=== PATIENT | female | born 1970 | race Caucasian/White ===

== ENCOUNTER → 2016-09-28 | Day surgery (SDC) | payer OTHER ==
[~2016-09-28] MED LIST: BUPIVACAINE HCL PF 0.25% 30 ML VIAL ONE; DARV PO; IRON18TA PO; KETOROLAC TROMETHAMINE 30 MG/ML (IVP) VIAL IV PUSH ONE; LACTATED RINGER'S 1000 ML INJ 1,000 ML ONE; MEPERIDINE HCL 25 MG/ML VIAL ONE; MIDAZOLAM HCL 2 MG/2 ML VIAL ONE; ONDANSETRON HCL 4 MG/2 ML VIAL IV PUSH ONE; PREN0.01 PO; PROPOFOL 200 MG/20 ML AMP IV ONE; ceFAZolin 2 GM PREMIX 50 ML ONE
--- NOTE | 2016-09-28 20:53 | MP ---
cc: FIDENCIO MOBLEY MD DATE OF SURGERY 09/28/16 PREOPERATIVE DIAGNOSIS Symptomatic left ovarian cyst, dysmenorrhea and menorrhagia. PROCEDURE 1. Operative laparoscopy with left salpingectomy and removal of paratubal cyst 2. Right partial salpingectomy 3. Hysteroscopy with dilatation and curettage. 4. Attempt use of the NovaSure was unsuccessful due to device failure. ANESTHESIA General ESTIMATED BLOOD LOSS None. DRAINS Red Huertas catheter x 50 mL of clear urine. INDICATIONS FOR PROCEDURE Patient with history of dysmenorrhea and menorrhagia. Ultrasound revealed a 5 cm persistent left ovarian adnexal cyst. The patient has had a history of smoking, was on oral contraceptives removed due to thromboembolic risk. The patient after consultation for the necessity of the operative laparoscopy consented for operative laparoscopy, removal of left adnexal mass, bilateral tubal ligation, hysteroscopy with dilatation curettage and possible endometrial ablation. OPERATIVE FINDINGS The patient had a solitary 5 cm left paratubal cyst. The ovary itself was normal. The contralateral right ovary was normal. Uterus is normal size and shape. The uterine cavity was symmetrical, measured 9 cm in length, 3.4 cm in width. There was no focal abnormality. There was no perforation. There is no deformity. Endometrial curettings were sent along with the segment of the right fallopian tube and then the left fallopian tube and paratubal cyst as pathology specimens. PROCEDURE IN DETAIL The patient was taken to the operating room, under general anesthesia had an LMA placed. She was carefully positioned in dorsolithotomy position using Bhanu stirrups with sequentials placed on lower extremities. She was prepped and draped. Red Huertas catheter was used to drain the bladder of about 50 mL of clear urine. Exam of the cervix was midline, normal size and shape. Cervix is dilated to accommodate a manipulator using a HUMI. HUMI was inserted in atraumatic fashion and then the retractor was removed. Gloves were changed. The abdomen was examined. 0.25% plain Marcaine was used for all injection sites. Umbilical port was chosen first using a 5 mm port. Placement was directed into the abdominal cavity without complication. Insufflation at low pressure was conducted. The patient was positioned to evaluate the pelvic anatomy as stated above. Two accessory ports were used, a #11 suprapubic port and a #5 right lateral flank port. The Harmonic scalpel was used to excise the cyst and tube on the left in an atraumatic hemostatic fashion and then the fallopian tube segment was removed from the right without complication. All tissue specimens were sent and labeled appropriately. Pelvis was irrigated with copious normal saline. No active bleeding, no hematoma. Once the laparoscopic portion was complete, the pneumoperitoneum was decompressed. The suprapubic 11 mm port was closed at the fascia with a #2 Vicryl suture and then the skin incisions were closed with 4-0 Monocryl in a subcuticular fashion with Steri-Strips applied. Direction was placed back to the cervix where the bivalve retractor was used. The HUMI manipulator was removed. Hysteroscopy using normal saline and a 5 mm rigid hysteroscope was used to enter the cavity, findings as stated above. Curettage of the cavity was performed. NovaSure device was utilized. Measurements were set at 6 and 3.4. Numerous attempts for cavity check failed. Re-examination of the cavity proved normal. There was no perforation. There is no deformity. No active bleeding. Two more attempts were made using the NovaSure and again the device was unsuccessful in providing cavity seal. At this point, the procedure was aborted. At the completion of the case, all instrumentation was removed. There was no vaginal bleeding. Cervix was intact. The patient was stable. Full and final count was correct at the end of the case. The patient was taken to recovery room on room air. MD MICK Arreola/ /8:46 AM /8:34 PM
== END | disposition home or self-care (01) ==
LOC: ESDC 06:32
PROVIDERS: ATTEND Obstetrics & Gynecology
DX: N83.202 Unspecified ovarian cyst, left side (principal); N94.6 Dysmenorrhea, unspecified; N92.0 Excessive and frequent menstruation with regular cycle
CPT/HCPCS: 00840; 00952; 58558; 58661; 88305; J0690; J1885; J2175; J2250; J2405; J3010; J7120; 88304